=== PATIENT | female | born 1950 | race Caucasian/White ===

== ENCOUNTER 2019-04-04 08:53 | Day surgery (SDC) | payer MEDICARE, OTHER ==
[2019-04-04] MEDS: Polymyxin B/Trimethoprim 10 ML Bottle EYERT SCH ×4 (09:23→11:13)
[2019-04-04] MEDS: Brimonidine 0.2% Ophth Soln 5 ML Bottle EYERT SCH ×4 (09:28→11:13)
[2019-04-04] MEDS: Phenylephrine 2.5% Ophth Soln 2 ML Bot EYERT SCH ×6 (09:33→10:55)
[2019-04-04] MEDS: Tropicamide 1% Ophth Soln 15 ML Bottle EYERT SCH ×4 (09:38→10:22)
--- NOTE | 2019-04-04 09:39 | PCM.PREANE ---
Preanesthetic Assessment - Anesthesia/Transfusion/Family Hx Anesthesia History: Prior Anesthesia Without Reaction Family History of Anesthesia Reaction: No Transfusion History: Prior Transfusion Without Reaction (1979) - Review of Systems General: No Symptoms Pulmonary: No Symptoms (Smoker less than 1ppd) Cardiovascular: No Symptoms (Elevated cholesterol) Gastrointestinal: No Symptoms Neurological: No Symptoms Other: Reports: None - Physical Assessment NPO Status Date: 04/03/19 NPO Status Time: 21:00 Vital Signs: Last Vital Signs Temp 36.2 C 04/04/19 09:11 Pulse 72 04/04/19 09:11 Resp 16 04/04/19 09:11 BP 118/69 04/04/19 09:11 Pulse Ox 97 04/04/19 09:11 Height: 1.65 m Weight: 61.689 kg ASA Class: 2 Mental Status: Alert & Oriented x3 Airway Class: Mallampati = 2 Dentition: Reports: Dentures (Upper), Caries Thyro-Mental Finger Breadths: 3 Mouth Opening Finger Breadths: 3 ROM/Head Extension: Full Lungs: Clear to Auscultation, Normal Respiratory Effort Cardiovascular: Regular Rate, Regular Rhythm - Allergies Allergies/Adverse Reactions: Allergies Allergy/AdvReac Type Severity Reaction Status Date / Time No Known Allergies Allergy Verified 04/03/19 08:09 - Acknowledgements Anesthesia Type Planned: MAC Pt an Appropriate Candidate for the Planned Anesthesia: Yes Alternatives and Risks of Anesthesia Discussed w Pt/Guardian: Yes Pt/Guardian Understands and Agrees with Anesthesia Plan: Yes PreAnesthesia Questionnaire - HOME MEDS Home Medications: Home Meds Simvastatin [Zocor] 20 mg PO BEDTIME 04/03/19 [History] - CURRENT (IN HOUSE) MEDS Current Meds: Current Medications Brimonidine Tartrate (Alphagan 0.2% Ophth Soln) 0 ml EYERT ASDIRECTED [facility] Stop: 04/04/19 18:00 Last Admin: 04/04/19 09:28 Dose: 1 drop Cefuroxime Sodium (Zinacef) 0 mg EYERT ASDIRECTED [facility] Stop: 04/04/19 18:00 Lidocaine HCl (Xylocaine-Mpf 1%) 0 ml INJECT ASDIRECTED [facility] Stop: 04/04/19 18:00 Phenylephrine HCl (Dale-Synephrine 2.5% Ophth Soln) 0 ml EYERT ASDIRECTED [facility] Stop: 04/04/19 18:00 Last Admin: 04/04/19 09:33 Dose: 1 drop Pilocarpine HCl (Pilocar 4% Ophth Soln) 0 ml EYERT ASDIRECTED [facility] Stop: 04/04/19 18:00 Polymyxin/Trimethoprim Sulfate (Polytrim Ophth Soln) 0 ml EYERT ASDIRECTED [facility] Stop: 04/04/19 18:00 Last Admin: 04/04/19 09:23 Dose: 1 drop Tetracaine HCl (Tetracaine 0.5% Steri-Unit Tricia) 0 ml EYERT ASDIRECTED [facility] Stop: 04/04/19 18:00 Tropicamide (Mydriacyl 1% Ophth Soln) 0 ml EYERT ASDIRECTED [facility] Stop: 04/04/19 18:00
[2019-04-04] MEDS: Tetracaine HCl/PF 0.5% 4 ML Bottle EYERT SCH ×3 (09:51→11:02)
[2019-04-04] MEDS: Lidocaine 1% PF 2 ML SDV INJECT SCH ×2 (09:51→11:03)
[2019-04-04] MEDS: Cefuroxime 10 MG/ML SYRINGE EYERT SCH ×2 (09:52→11:12)
[2019-04-04] MEDS: Pilocarpine 4% Ophth Soln 15 ML Bot EYERT SCH ×2 (09:52→11:13)
--- NOTE | 2019-04-04 11:14 | PCM48HPAN ---
Post Anesthesia Note - EVALUATION WITHIN 48HRS OF ANESTHETIC Vital Signs in Normal Range: Yes Patient Participated in Evaluation: Yes Respiratory Function Stable: Yes Airway Patent: Yes Cardiovascular Function Stable: Yes Hydration Status Stable: Yes Pain Control Satisfactory: Yes Nausea and Vomiting Control Satisfactory: Yes Mental Status Recovered: Yes Vital Signs: Last Vital Signs Temp 36.2 C 04/04/19 09:11 Pulse 72 04/04/19 09:11 Resp 16 04/04/19 09:11 BP 118/69 04/04/19 09:11 Pulse Ox 97 04/04/19 09:11
== END 2019-04-04 11:26 | disposition home or self-care (01) ==
LOC: JD.SDS 08:53
PROVIDERS: ATTEND Ophthalmology
DX: H25.813 Combined forms of age-related cataract, bilateral (principal); E78.00 Pure hypercholesterolemia, unspecified; F17.210 Nicotine dependence, cigarettes, uncomplicated; Z79.899 Other long term (current) drug therapy
CPT/HCPCS: 66984; J0697; J2001; V2632

== ENCOUNTER 2019-05-02 08:53 | Day surgery (SDC) | payer MEDICARE, OTHER ==
[~2019-05-02 08:53] MED LIST: Cefuroxime 10 MG/ML SYRINGE EYELF SCH; Lidocaine 1% PF 2 ML SDV INJECT SCH; Pilocarpine 4% Ophth Soln 15 ML Bot EYELF SCH
--- NOTE | 2019-05-02 09:41 | PCM.PREANE ---
Preanesthetic Assessment - Anesthesia/Transfusion/Family Hx Anesthesia History: Prior Anesthesia Without Reaction Family History of Anesthesia Reaction: No Transfusion History: Prior Transfusion Without Reaction (1979) - Review of Systems General: No Symptoms Pulmonary: Other (smoker) Cardiovascular: No Symptoms Gastrointestinal: No Symptoms Neurological: No Symptoms Other: Reports: None - Physical Assessment NPO Status Date: 05/01/19 NPO Status Time: 18:00 Vital Signs: Last Vital Signs Temp 36.8 C 05/02/19 09:20 Pulse 77 05/02/19 09:20 Resp 16 05/02/19 09:20 BP 113/66 05/02/19 09:20 Pulse Ox 98 05/02/19 09:20 Height: 1.65 m Weight: 61.689 kg ASA Class: 2 Mental Status: Alert & Oriented x3 Airway Class: Mallampati = 2 Dentition: Reports: Dentures (upper) Thyro-Mental Finger Breadths: 3 Mouth Opening Finger Breadths: 3 ROM/Head Extension: Full Lungs: Clear to Auscultation, Normal Respiratory Effort Cardiovascular: Regular Rate, Regular Rhythm - Allergies Allergies/Adverse Reactions: Allergies Allergy/AdvReac Type Severity Reaction Status Date / Time No Known Allergies Allergy Verified 05/01/19 14:10 - Blood Blood Available: No Product(s) Available: None - Anesthesia Plan Pre-Op Medication Ordered: None - Acknowledgements Anesthesia Type Planned: MAC Pt an Appropriate Candidate for the Planned Anesthesia: Yes Alternatives and Risks of Anesthesia Discussed w Pt/Guardian: Yes Pt/Guardian Understands and Agrees with Anesthesia Plan: Yes PreAnesthesia Questionnaire - HOME MEDS Home Medications: Home Meds Simvastatin [Zocor] 20 mg PO BEDTIME 04/03/19 [History] - CURRENT (IN HOUSE) MEDS Current Meds: Current Medications Brimonidine Tartrate (Alphagan 0.2% Ophth Soln) 0 ml EYELF ASDIRECTED [facility] Stop: 05/02/19 23:00 Cefuroxime Sodium (Zinacef) 0 mg EYELF ASDIRECTED [facility] Stop: 05/02/19 23:00 Lidocaine HCl (Xylocaine-Mpf 1%) 1 ml INJECT ASDIRECTED [facility] Stop: 05/02/19 23:00 Phenylephrine HCl (Dale-Synephrine 2.5% Ophth Soln) 0 ml EYELF ASDIRECTED [facility] Stop: 05/02/19 23:00 Pilocarpine HCl (Pilocar 4% Ophth Soln) 0 ml EYELF ASDIRECTED [facility] Stop: 05/02/19 23:00 Polymyxin/Trimethoprim Sulfate (Polytrim Ophth Soln) 0 ml EYELF ASDIRECTED [facility] Stop: 05/02/19 23:00 Tetracaine HCl (Tetracaine 0.5% Steri-Unit Tricia) 0 ml EYELF ASDIRECTED [facility] Stop: 05/02/19 23:00 Tropicamide (Mydriacyl 1% Ophth Soln) 0 ml EYELF ASDIRECTED [facility] Stop: 05/02/19 23:00
[2019-05-02] MEDS: Polymyxin B/Trimethoprim 10 ML Bottle EYELF SCH ×3 (09:53→11:17)
[2019-05-02] MEDS: Brimonidine 0.2% Ophth Soln 5 ML Bottle EYELF SCH ×3 (10:01→11:17)
[2019-05-02] MEDS: Phenylephrine 2.5% Ophth Soln 2 ML Bot EYELF SCH ×5 (10:06→10:56)
[2019-05-02] MEDS: Tropicamide 1% Ophth Soln 15 ML Bottle EYELF SCH ×4 (10:09→10:42)
[2019-05-02] MEDS: Tetracaine HCl/PF 0.5% 4 ML Bottle EYELF SCH ×2 (10:46→11:08)
--- NOTE | 2019-05-02 11:20 | PCM48HPAN ---
Post Anesthesia Note - EVALUATION WITHIN 48HRS OF ANESTHETIC Vital Signs in Normal Range: Yes Patient Participated in Evaluation: Yes Respiratory Function Stable: Yes Airway Patent: Yes Cardiovascular Function Stable: Yes Hydration Status Stable: Yes Pain Control Satisfactory: Yes Nausea and Vomiting Control Satisfactory: Yes Mental Status Recovered: Yes Vital Signs: Last Vital Signs Temp 36.8 C 05/02/19 09:20 Pulse 77 05/02/19 09:20 Resp 16 05/02/19 09:20 BP 113/66 05/02/19 09:20 Pulse Ox 98 05/02/19 09:20
== END 2019-05-02 11:30 | disposition home or self-care (01) ==
LOC: JD.SDS 08:53
PROVIDERS: ATTEND Ophthalmology
DX: H25.812 Combined forms of age-related cataract, left eye (principal); H16.103 Unspecified superficial keratitis, bilateral; H16.223 Keratoconjunctivitis sicca, not specified as Sjogren's, bilateral; H02.834 Dermatochalasis of left upper eyelid; H02.831 Dermatochalasis of right upper eyelid; H52.31 Anisometropia; E78.00 Pure hypercholesterolemia, unspecified; F17.200 Nicotine dependence, unspecified, uncomplicated; Z96.1 Presence of intraocular lens; Z98.41 Cataract extraction status, right eye; Z79.899 Other long term (current) drug therapy
CPT/HCPCS: 66984; J0697; J2001; C1780

== ENCOUNTER 2024-05-18 07:57 | Day surgery (SDC) | payer MEDICARE, OTHER ==
[~2024-05-18 07:57] MED LIST changes: -Cefuroxime 10 MG/ML SYRINGE EYELF SCH; -Lidocaine 1% PF 2 ML SDV INJECT SCH; -Pilocarpine 4% Ophth Soln 15 ML Bot EYELF SCH; +Sodium Chloride 0.9% 10 ML Syringe FLUSH PRN; +Sodium Chloride 0.9% 10 ML Syringe FLUSH SCH
[2024-05-18] MEDS ORDERED: Lactated Ringers 1,000 ML ONE (08:13)
[2024-05-18] MEDS ORDERED: Propofol 200 MG/20 ML SDV ONE (08:13)
[2024-05-18] MEDS ORDERED: ceFAZolin 2 GM Vial ONE (08:14)
[2024-05-18] MEDS ORDERED: Midazolam 1 MG/ML 2 ML SDV ONE (08:14)
[2024-05-18] MEDS ORDERED: fentaNYL 100 MCG/2 ML SDV IVPUSH PRN (08:37)
[2024-05-18] MEDS ORDERED: HYDROmorphone 0.5 MG/0.5 ML Syringe IVPUSH PRN (08:37)
[2024-05-18] MEDS ORDERED: Ondansetron 4 MG/2 ML SDV IVPUSH PRN (08:37)
[2024-05-18] MEDS: Pregabalin 25 MG Cap PO ONE (08:39)
[2024-05-18] MEDS: oxyCODONE ER 10 MG TAB.ER PO ONE (08:39)
[2024-05-18] MEDS: Acetaminophen 325 MG Tab PO ONE (08:40)
[2024-05-18] MEDS: Lactated Ringers 1,000 ML IV SCH (08:40)
[2024-05-18] MEDS ORDERED: Ropivacaine 0.5% 5 MG/ML 30 ML SDV ONE (09:25)
[2024-05-18] MEDS ORDERED: Phenylephrine 1% 10 MG/ML SDV ONE (09:41)
[2024-05-18] MEDS: Morphine 8 MG, EPINEPHrine 0.3 MG, Cefuroxime 750 MG, Ketorolac 30 MG, Sodium Chloride ... PRN (10:07)
[2024-05-18] MEDS: Tranexamic Acid 1,000 MG/10 ML Vial ONE (10:12)
[2024-05-18] MEDS: VANCOmycin 1 GM SDV ONE (10:12)
[2024-05-18] MEDS ORDERED: Ketorolac 30 MG/ML SDV ONE (10:20)
[2024-05-18] MEDS: Triamcinolone Acetonide 40 MG/ML 1 ML SDV ONE (10:25)
[2024-05-18] MEDS: Bupivacaine 0.25% 10 ML SDV ONE (10:25)
== END 2024-05-18 17:15 | disposition home or self-care (01) ==
LOC: JD.SDS 07:57
PROVIDERS: ATTEND Orthopaedic Surgery
DX: M17.0 Bilateral primary osteoarthritis of knee (principal); E78.5 Hyperlipidemia, unspecified; Z79.899 Other long term (current) drug therapy
CPT/HCPCS: 0055T; 20610; 27447; 64447; 73560; 97110; 97116; 97162; 97530; A9270; C1713; C1776; J0171; J0665; J0690; J0697; J1885; J2250; J2272; J2371; J2704; J2795; J3301; J7120; 01402; 99100; J3490